=== PATIENT | male | born 1995 | race African-American/Black ===

== ENCOUNTER 2022-06-04 17:47 | Emergency (ER) | payer OTHER ==
[2022-06-04 18:19] LABS: Absolute Lymphocytes (CBC) 1.9 K/uL (0.7-4.9); Hematocrit 41.1 % (39.6-49.0); Lymphocytes % 36.5 % (15.3-44.8); MPV 8.3 fL (7.6-11.3); RBC Red Blood Cell Count 4.89 M/uL (4.33-5.43)
[2022-06-04 18:28] LABS: Albumin 3.9 g/dL (3.4-5.0); Bilirubin Total 0.4 mg/dL (0.2-1.0); Potassium 3.7 mmol/L (3.5-5.1); Protein, Total 7.3 g/dL (6.4-8.2); Troponin High Sensitivity 10.2 pg/mL (<58.9)
--- NOTE | 2022-06-04 18:53 | RAD REPORT ---
EXAM DESCRIPTION: Shonda Single View06/04/2022 6:33 pm CLINICAL HISTORY: CHEST PAIN COMPARISON: No comparisons TECHNIQUE: Portable AP view of the chest. FINDINGS: The lungs are clear.Underexposure somewhat limits evaluation in the lung periphery bilater ally. No pneumothorax or effusion. The cardiomediastinal contours are unremarkable. IMPRESSION: No acute cardiopulmonary process.
--- NOTE | 2022-06-04 18:57 | ER ---
Nurse's Notes [facility] Name: Juno Harris Age: 26 yrs Sex: Male : 1995 Arrival Date: 06/04/2022 Time: 17:50 Bed 7 Private MD: Diagnosis: Essential (primary) hypertension;Chest pain, unspecified Presentation: 06/04 17:53 Chief complaint: EMS states: were toned out for hypertensive crisis, BP over 200 iw systolic, EMS reports BP readings under 140 systolic on scene and en route to ER, pt states he was a little dizzy and had some chest pain but it has resolved . Pt takes HCTZ 25 mg daily and had it this morning. Coronavirus screen: At this time, the client does not indicate any symptoms associated with coronavirus-19. Ebola Screen: Patient negative for fever greater than or equal to 101.5 degrees Fahrenheit, and additional compatible Ebola Virus Disease symptoms Patient denies exposure to infectious person. Patient denies travel to an Ebola-affected area in the 21 days before illness onset. No symptoms or risks identified at this time. Initial Sepsis Screen: Does the patient meet any 2 criteria? No. Patient's initial sepsis screen is negative. Does the patient have a suspected source of infection? No. Patient's initial sepsis screen is negative. Risk Assessment: Do you want to hurt yourself or someone else? Patient reports no desire to harm self or others. Onset of symptoms was June 04, 2022. 17:53 Method Of Arrival: EMS: [facility] iw 17:53 Acuity: CAMACHO 3 iw Historical: - Allergies: 17:56 No Known Allergies; iw - Home Meds: 17:56 hydrochlorothiazide 25 mg Oral tab 1 tab once daily [Active]; iw - PMHx: 17:56 Hypertensive disorder; iw - PSHx: 17:56 None; iw - Immunization history:: Adult Immunizations unknown. - Social history:: Smoking status: . - Family history:: not pertinent. Screenin:58 [facility] ED Fall Risk Assessment (Adult) History of falling in the last 3 months, iw including since admission No falls in past 3 months (0 pts). Abuse screen: Denies threats or abuse. Denies injuries from another. Nutritional screening: No deficits noted. Tuberculosis screening: No symptoms or risk factors identified. Assessment: 17:58 General: Appears in no apparent distress. Behavior is calm, cooperative. Pain: Denies iw pain. Neuro: Level of Consciousness is awake, alert, obeys commands, Oriented to person, place, time, situation, Moves all extremities. Full function. Cardiovascular: Capillary refill < 3 seconds in bilateral fingers Patient's skin is warm and dry. Respiratory: Respiratory effort is even, unlabored, Respiratory pattern is regular, symmetrical. GI: Abdomen is non-distended. Derm: Skin is intact, is healthy with good turgor. Musculoskeletal: No signs and/or symptoms reported regarding the musculoskeletal system. Range of motion: intact in all extremities. 19:17 Reassessment: Patient denies pain at this time. Patient states feeling better. General: tw5 Appears in no apparent distress. Behavior is calm, cooperative, appropriate for age. Vital Signs: 17:53 BP 138 / 81; Pulse 74; Resp 16; Temp 98.2; Pulse Ox 100% on R/A; Weight 132 kg; Height iw 6 ft. 0 in. (182.88 cm); Pain 0/10; 18:54 BP 129 / 70; Pulse 79; Resp 20; Pulse Ox 100% on R/A; ko1 19:17 BP 129 / 70; Pulse 75; Resp 18; Pulse Ox 100% ; tw5 17:53 Body Mass Index 39.47 (132.00 kg, 182.88 cm) iw ED Course: 17:50 Patient arrived in ED. hb 17:53 Pastor Garsia MD is Attending Physician. rt 17:55 Triage completed. iw 17:56 Arm band placed on. iw 17:58 Patient has correct armband on for positive identification. Bed in low position. Side iw rails up X2. Client placed on continuous cardiac and pulse oximetry monitoring. NIBP monitoring applied. 17:58 Maintain EMS IV. Dressing intact. Good blood return noted. Site clean \T\ dry. Gauge \T\ iw site: 20 RAC. 17:58 No provider procedures requiring assistance completed. iw 18:12 EKG done, by ED staff, reviewed by Pastor Garsia MD. mm9 18:35 Chest Single View XRAY In Process Unspecified. EDMS 18:54 Molly Doss, ERIC is Primary Nurse. ko1 19:17 IV discontinued, intact, bleeding controlled, No redness/swelling at site. Pressure tw5 dressing applied. Administered Medications: No medications were administered Medication: 17:59 VIS not applicable for this client. iw Outcome: 18:56 Discharge ordered by MD. rt 19:17 Discharged to Law Enforcement tw5 19:17 Condition: stable 19:17 Discharge instructions given to patient, Instructed on discharge instructions, follow up and referral plans. Demonstrated understanding of instructions, follow-up care. 19:17 Patient left the ED. tw5 Signatures: Dispatcher [employer] EDNelli Mcgee RN RN Nicole Calhoun RN RN hb Wood, Tiffany tw5 Molly Doss RN RN ko1 Martinez, Maria mm9 Pastor Garsia MD MD rt Corrections: (The following items were deleted from the chart) 17:56 17:53 Chief complaint: EMS states: were toned out for hypertensive crisis, BP over 200 iw systolic, EMS reports BP readings under 140 systolic on scene and en route to ER, pt states he was a little dizzy and had some chest pain but it has resolved iw
--- NOTE | 2022-06-04 18:57 | EDPHYS ---
Physician Documentation [facility] Name: Juno Harris Age: 26 yrs Sex: Male : 1995 Arrival Date: 06/04/2022 Time: 17:50 Bed 7 Private MD: ED Physician Pastor Garsia HPI: 06/04 18:10 This 26 yrs old Black Male presents to ER via EMS with complaints of High Blood rt Pressure. 18:10 Patient with history of hypertension on hydrochlorothiazide presents to the ED with rt reported chest pain, dizziness, reported anxiety earlier today when he woke up from a nap. He states that he did take his antihypertensive medication this morning. Patient states that his physical symptoms have completely resolved. He had reported hypertension to about 205 systolic at the present, EMS stated that it was in about the 140s range. Patient denies other acute complaints at this time, symptoms are moderate in severity, no other aggravating or alleviating factors.. Historical: - Allergies: 17:56 No Known Allergies; iw - Home Meds: 17:56 hydrochlorothiazide 25 mg Oral tab 1 tab once daily [Active]; iw - PMHx: 17:56 Hypertensive disorder; iw - PSHx: 17:56 None; iw - Immunization history:: Adult Immunizations unknown. - Social history:: Smoking status: . - Family history:: not pertinent. ROS: 18:10 Constitutional: Negative for fever, chills, and weight loss, Eyes: Negative for injury, rt pain, redness, and discharge, Respiratory: Negative for shortness of breath, cough, wheezing, and pleuritic chest pain, Abdomen/GI: Negative for abdominal pain, nausea, vomiting, diarrhea, and constipation, MS/Extremity: Negative for injury and deformity, Skin: Negative for injury, rash, and discoloration. 18:10 Cardiovascular: Positive for chest pain, Negative for edema. 18:10 Psych: Positive for anxiety. Exam: 18:10 Constitutional: This is a well developed, well nourished patient who is awake, alert, rt and in no acute distress. Head/Face: Normocephalic, atraumatic. Eyes: Pupils equal round and reactive to light, extra-ocular motions intact. Lids and lashes normal. Conjunctiva and sclera are non-icteric and not injected. Cornea within normal limits. Periorbital areas with no swelling, redness, or edema. Chest/axilla: Normal chest wall appearance and motion. Nontender with no deformity. No lesions are appreciated. Cardiovascular: Regular rate and rhythm with a normal S1 and S2. No gallops, murmurs, or rubs. Normal PMI, no JVD. No pulse deficits. Respiratory: Lungs have equal breath sounds bilaterally, clear to auscultation and percussion. No rales, rhonchi or wheezes noted. No increased work of breathing, no retractions or nasal flaring. Abdomen/GI: Soft, non-tender, with normal bowel sounds. No distension or tympany. No guarding or rebound. No evidence of tenderness throughout. Skin: Warm, dry with normal turgor. Normal color with no rashes, no lesions, and no evidence of cellulitis. MS/ Extremity: Pulses equal, no cyanosis. Neurovascular intact. Full, normal range of motion. Neuro: Awake and alert, GCS 15, oriented to person, place, time, and situation. Cranial nerves II-XII grossly intact. Motor strength 5/5 in all extremities. Sensory grossly intact. Cerebellar exam normal. Normal gait. Psych: Awake, alert, with orientation to person, place and time. Behavior, mood, and affect are within normal limits. 18:10 ECG was reviewed by the Attending Physician. Vital Signs: 17:53 BP 138 / 81; Pulse 74; Resp 16; Temp 98.2; Pulse Ox 100% on R/A; Weight 132 kg; Height iw 6 ft. 0 in. (182.88 cm); Pain 0/10; 18:54 BP 129 / 70; Pulse 79; Resp 20; Pulse Ox 100% on R/A; ko1 19:17 BP 129 / 70; Pulse 75; Resp 18; Pulse Ox 100% ; tw5 17:53 Body Mass Index 39.47 (132.00 kg, 182.88 cm) iw MDM: 17:53 Patient medically screened. rt 18:56 Differential diagnosis: Hypertension, acute coronary syndrome, anxiety reaction. Data rt reviewed: vital signs, nurses notes, lab test result(s), EKG, radiologic studies. Consideration of Admission/Observation Escalation of care including admission/observation considered. I considered the following discharge prescriptions or medication management in the emergency department. Independent interpretation of the following test(s) in the Emergency Department X-Ray: My interpretation is No consolidation, edema on my interpretation of the x-ray images. Historians other than the Patient: EMS: Discussed blood pressure readings with EMS. Care significantly affected by the following chronic conditions: Hypertension. Counseling: I had a detailed discussion with the patient and/or guardian regarding: the historical points, exam findings, and any diagnostic results supporting the discharge/admit diagnosis, the presence of at least one elevated blood pressure reading (>120/80) during this emergency department visit, lab results, radiology results, the need for outpatient follow up. 18:58 ED course: Low suspicion for acute coronary syndrome, given chronicity of symptoms, 1 rt set of enzymes is sufficient to rule out acute coronary syndrome. There is no evidence of endorgan dysfunction with regards to the patient's hypertension.. 06/04 18:01 Order name: CBC with Diff; Complete Time: 18:30 rt 06/04 18:01 Order name: CMP; Complete Time: 18:30 rt 06/04 18:01 Order name: EKG; Complete Time: 18:01 rt 06/04 18:01 Order name: EKG - Nurse/Tech; Complete Time: 18:04 rt 06/04 18:01 Order name: Troponin High Sensitivity; Complete Time: 18:30 rt 06/04 18:01 Order name: Chest Single View XRAY; Complete Time: 18:55 rt EC:10 Rate is 70 beats/min. Rhythm is regular, Normal Sinus Rhythm with No ectopy. QRS [place] rt is Normal. [place] interval is normal. QRS interval is normal. QT interval is normal. Clinical impression: NSR w/ Non-specific ST/T Changes. Administered Medications: No medications were administered Disposition Summary: 06/04/22 18:56 Discharge Ordered Location: Home rt Problem: an acute exacerbation rt Symptoms: have improved rt Condition: Stable rt Diagnosis - Essential (primary) hypertension rt - Chest pain, unspecified rt Followup: rt - With: Private Physician - When: 2 - 3 days - Reason: Discharge Instructions: - Discharge Summary Sheet rt - Nonspecific Chest Pain, Adult rt - Hypertension, Adult rt Forms: - Medication Reconciliation Form rt - Thank You Letter rt - Antibiotic Education rt - Prescription Opioid Use rt Signatures: Dispatcher [employer] EDNelli Mcgee RN RN iw [place], Pastor, MD MD rt
[2022-06-04 19:43] VITALS: BP 129/70; O2SAT 100
--- NOTE | 2022-06-07 12:45 | EKG ---
Test Date: 2022-06-04 Test Time: 18:00:28 Wirer Helper: ESDRAS MEASUREMENT RESULTS: Intervals: Rate: 70 DE: 266 QRSD: 88 QT: 372 QTc: 401 [place]: P: 43 DE: 266 QRS: 75 T: 30 INTERPRETIVE STATEMENTS: Sinus rhythm with marked sinus arrhythmia with 1st degree AV block Nonspecific ST abnormality Abnormal ECG No previous ECG available for comparison Electronically Signed On 06-07-22 12:38:16 [place] by Braeden Hale
== END 2022-06-04 19:17 | disposition home or self-care (01) ==
LOC: ER 17:47
DX: R07.89 Other chest pain (principal); I10 Essential (primary) hypertension
CPT/HCPCS: 36415; 71045; 80053; 84484; 85025; 93005; 99283